=== PATIENT | female | born 1950 | race Caucasian/White ===

== ENCOUNTER 2017-03-23 16:48 | Emergency (ER) | payer SELFPAY ==
[~2017-03-23] VITALS: Ht 177.8 cm; Wt 68.0 kg
[2017-03-23 16:50] VITALS: BP 168/77
--- NOTE | 2017-03-23 17:14 | PHYS DOC ---
Past Medical History Past Medical History: Endometriosis Past Surgical History: Other Additional Past Surgical Histo: UTERIN CYST REMOVAL Alcohol Use: Rarely Drug Use: None Adult General Chief Complaint Chief Complaint: WRIST PAIN HPI HPI Patient is a 66 year old female presents to the emergency department 24 hours after a fall. Patient states she was in the parking lot at the local [employer] when she tripped falling on outstretched hands. Patient states she struck her head on the pavement. Did not have loss of consciousness. Patient states that [facility] logistics project [facility] her for workman's comp follow-up and the patient complied with this Review of Systems Review of Systems Constitutional: Denies fever or chills [] Eyes: Denies change in visual acuity, redness, or eye pain [] HENT: Denies nasal congestion or sore throat [] Respiratory: Denies cough or shortness of breath [] Cardiovascular: No additional information not addressed in HPI [] GI: Denies abdominal pain, nausea, vomiting, bloody stools or diarrhea [] : Denies dysuria or hematuria [] Musculoskeletal: Complaining of right hand, left wrist pain Integument: Denies rash or skin lesions [] Neurologic: Denies headache, focal weakness or sensory changes [] Endocrine: Denies polyuria or polydipsia [] All other systems were reviewed and found to be within normal limits, except as documented in this note. Current Medications Current Medications Current Medications Medications (Trade) Dose Ordered Sig/Diana Start Time Stop Time Status Last Admin Dose Admin Acetaminophen/ Codeine Phosphate (Tylenol #3) 1 tab 1X ONCE 03/23/17 17:15 03/23/17 17:16 DC 03/23/17 17:40 1 TAB Allergies Allergies Allergies Coded Allergies Type Severity Reaction Last Updated Verified No Known Drug Allergies 03/23/17 No Physical Exam Physical Exam Constitutional: Well developed, well nourished, no acute distress, non-toxic appearance. [] HENT: Normocephalic, bilateral external ears normal, oropharynx moist, no oral exudates, nose normal. Professional abrasion to the right side of the forehead and right temporal region [] Eyes: PERRLA, EOMI, conjunctiva normal, no discharge. [] Neck: Normal range of motion, no line or paracervical tenderness, supple, no stridor. [] Cardiovascular:Heart rate regular rhythm, no murmur [] Lungs & Thorax: Bilateral breath sounds clear to auscultation [] Abdomen: Bowel sounds normal, soft, no tenderness, no masses, no pulsatile masses. [] Skin: Warm, dry, no erythema, no rash. [] Back: No tenderness, no CVA tenderness. [] Extremities: Right hand with ecchymosis and tenderness to palpate over the fourth and fifth metacarpal. Right wrist exam unremarkable. Left wrist with obvious deformity, ecchymosis and swelling. She's diffusely tender to palpate. The left hand exam is unremarkable. Bilateral elbow exam unremarkable. Neurologic: Alert and oriented X 3, normal motor function, normal sensory function, no focal deficits noted. [] Psychologic: Affect normal, judgement normal, mood normal. [] Current Patient Data Vital Signs Vital Signs Date Time Temp Pulse Resp B/P (MAP) Pulse Ox O2 Delivery O2 Flow Rate FiO2 03/23/17 17:40 16 99 03/23/17 16:50 97.6 73 Room Air 97.6 EKG EKG [] Radiology/Procedures Radiology/Procedures x-ray reviewed by Dr. Foley, radiology,right hand with nondisplaced fracture of the proximal fifth metacarpal, wrist x-ray also reviewed by Dr. Foley reveals a small cortical fracture arising from the triquetrum and a possible nondisplaced fracture of the styloid process of the distal radius. Is placed in a volar splint of the left hand, and an ulnar gutter inclusive of the fourth and fifth finger of the right hand. Plan will be for follow-up orthopedics. [facility] [address] [address] IMAGING REPORT Signed PATIENT: RAJ AGUILAR ACCOUNT: [id number] : 1950 LOCATION: ER AGE: 66 SEX: F EXAM STATUS: PRE ER ORD. PHYSICIAN: MARIZA ANDRADE APRN REASON: fall, pain PROCEDURE: CT HEAD AND CERVICAL SPINE WO CT Head W/O Contrast: History: FALL, HIT HEAD, NO PRIORS Comparison: none Axial images were obtained without contrast. There is moderate diffuse atrophy. There is no mass effect, extraaxial fluid collections or hydrocephalus. There is no focal loss of ni-white matter distinction to suggest acute ischemia, i.e. stroke. Impression: No acute findings. End impression CT C-Spine without contrast: Clinical History: FALL, HIT HEAD, NO PRIORS Technique: Axial helical images of the cervical spine were obtained without contrast, axial coronal and sagittal reconstruction was performed. Findings: There is no loss of vertebral body stature. There is no prevertebral soft tissue swelling. The vertebral bodies are well aligned. The C1-C2 relationship is normal. The visualized osseous structures appear normal. Impression: No acute findings. Clinical correlation suggested. PQRS Compliance Statement: One or more of the following individualized dose reduction techniques were utilized for this examination: 1. Automated exposure control 2. Adjustment of the mA and/or kV according to patient size 3. Use of iterative reconstruction technique Electronically signed by: Gautam Gonzales III, MD (03/23/2017 5:43 PM) [facility] DICTATED and SIGNED BY: GAUTAM GONZALES III, MD DATE: 03/23/17 173 CC: MARIZA ANDRADE APRN ~ Course & Med Decision Making Course & Med Decision Making Pertinent Labs and Imaging studies reviewed. (See chart for details) [Patient has a fracture on both left and right hand. The left handin a Velcro splint. The left hand is placed in an ulnar gutter inclusive of the fourth and fifth finger. These splints are placed by the extractions technician. Patient tolerated well. Neurovascular intact distal post placement. Dragon Disclaimer Dragon Disclaimer This electronic medical record was generated, in whole or in part, using a voice recognition dictation system. Departure Departure Impression: Primary Impression: Hand fracture, left Additional Impression: Hand fracture, right Disposition: 01 HOME, SELF-CARE Condition: STABLE Referrals: ABNER MODI MD Patient Instructions: Hand Fracture, Hand Fracture, Fifth Metacarpal Scripts Acetaminophen With Codeine (TYLENOL WITH CODEINE #3 TABLET) 1 Each Tablet 1 TAB PO PRN Q6HRS Y for PAIN, #20 TAB Prov: MARIZA ANDRADE APRN 03/23/17 Problem Qualifiers Primary Impression: Hand fracture, left Encounter type: initial encounter Fracture type: closed Qualified Codes: S62.92XA - Unspecified fracture of left wrist and hand, initial encounter for closed fracture Additional Impression: Hand fracture, right Encounter type: initial encounter Fracture type: closed Qualified Codes: S62.91XA - Unspecified fracture of right wrist and hand, initial encounter for closed fracture MARIZA ANDRADE APRN Mar 23, 2017 17:14
[2017-03-23] MEDS ORDERED: ACETAMINOPHEN/CODEINE 300/30MG TABLET. PO ONE (17:15)
--- NOTE | 2017-03-23 17:39 | RAD ---
Left wrist, 3 views, 03/23/2017: History: Fall The bony structures are demineralized. There is a small fracture fragment along the dorsal aspect of the first row of carpal bones. This probably arises from the posterior aspect of the triquetrum. There is a faint lucency projected over the styloid process of the distal radius raising the possibility of a nondisplaced fracture at that level. Moderate diffuse soft tissue swelling is present about the wrist. IMPRESSION: 1. Small cortical fracture arising from the dorsal aspect of the triquetrum. 2. Possible nondisplaced fracture of the styloid process of the distal radius. Right hand, 03/23/2017: History: Fall, injury The bony structures are demineralized. There is a nondisplaced fracture of the proximal aspect of the fifth metacarpal, best seen on the lateral view. No other fracture or dislocation is identified. IMPRESSION: 1. Demineralization. 2. Nondisplaced fracture of the proximal fifth metacarpal.
--- NOTE | 2017-03-23 17:46 | RAD ---
CT Head W/O Contrast: History: FALL, HIT HEAD, NO PRIORS Comparison: none Axial images were obtained without contrast. There is moderate diffuse atrophy. There is no mass effect, extraaxial fluid collections or hydrocephalus. There is no focal loss of ni-white matter distinction to suggest acute ischemia, i.e. stroke. Impression: No acute findings. End impression CT C-Spine without contrast: Clinical History: FALL, HIT HEAD, NO PRIORS Technique: Axial helical images of the cervical spine were obtained without contrast, axial coronal and sagittal reconstruction was performed. Findings: There is no loss of vertebral body stature. There is no prevertebral soft tissue swelling. The vertebral bodies are well aligned. The C1-C2 relationship is normal. The visualized osseous structures appear normal. Impression: No acute findings. Clinical correlation suggested. PQRS Compliance Statement: One or more of the following individualized dose reduction techniques were utilized for this examination: 1. Automated exposure control 2. Adjustment of the mA and/or kV according to patient size 3. Use of iterative reconstruction technique Electronically signed by: Andrew Robledo III, MD (03/23/2017 5:43 PM) [facility]
[2017-03-23] MEDS ORDERED: ACET-704 PO (17:55)
== END 2017-03-23 18:24 | disposition home or self-care (01) ==
LOC: ER 16:48
DX: S62.396A Other fracture of fifth metacarpal bone, right hand, initial encounter for closed fracture (principal); S52.515A Nondisplaced fracture of left radial styloid process, initial encounter for closed fracture; S00.01XA Abrasion of scalp, initial encounter; S00.81XA Abrasion of other part of head, initial encounter; W01.198A Fall on same level from slipping, tripping and stumbling with subsequent striking against other object, initial encounter; Y93.89 Activity, other specified; Y92.481 Parking lot as the place of occurrence of the external cause; Y99.8 Other external cause status
CPT/HCPCS: 29125; 70450; 72125; 73110; 73130; 99284-25

== ENCOUNTER → 2017-04-04 | Outpatient (CLI) | payer OTHER, MEDICARE ==
[2017-03-23 16:50] VITALS: BP 168/77
[~2017-04-04] MED LIST: ACET-704 PO
--- NOTE | 2017-04-04 09:24 | RAD ---
Three-view study of the left wrist History: Follow-up of left wrist fracture. Comparison: March 23, 2017. Findings: Again seen is a dorsal avulsion fracture of the triquetrum bone which is unchanged and nonhealed. Again seen is a nondisplaced fracture of the radial styloid process which is unchanged and remains nonhealed. There is a transverse radiolucency of the ulnar styloid process which is not a fracture line. Radial carpal articulation is maintained. No osteolytic process is seen. IMPRESSION: Stable nonhealed fractures of the distal left radius and the dorsal aspect of the triquetrum bone.
--- NOTE | 2017-04-04 09:35 | RAD ---
Three-view right hand study History: Follow-up of fracture Comparison: March 23, 2017. Findings: The fracture of the proximal fifth metacarpal bone is not as well visualized today and this most likely is due to positioning. It was only seen in the lateral view on the previous study. No other fracture is evident. No osteolytic process is seen. IMPRESSION: Fracture of the proximal aspect of the fifth metacarpal bone is difficult to visualize today most likely due to differences in positioning between the 2 studies.
== END | disposition home or self-care (01) ==
LOC: RAD 08:41
PROVIDERS: ATTEND Orthopaedic Surgery Sports Medicine
DX: S62.346D Nondisplaced fracture of base of fifth metacarpal bone, right hand, subsequent encounter for fracture with routine healing (principal); S62.102D Fracture of unspecified carpal bone, left wrist, subsequent encounter for fracture with routine healing; X58.XXXD Exposure to other specified factors, subsequent encounter
CPT/HCPCS: 73110; 73130